=== PATIENT | female | born 1945 | race Caucasian/White ===

== ENCOUNTER 2023-11-07 15:36 | Inpatient (IN) | payer OTHER ==
[~2023-11-07] VITALS: Ht 157.5 cm; Wt 48.5 kg
[2023-11-07] MEDS ORDERED: PLAVIX75 MG (17:15)
[2023-11-07] MEDS ORDERED: VAZALORE81 MG PO (17:15)
[2023-11-07] MEDS ORDERED: CARDIZEM CD180 M1 PO (17:16)
[2023-11-07 23:03] LABS: HEMATOCRIT 28.5 % (36.0-45.00); HEMOGLOBIN 9.4 g/dL (12.0-15.00); MEAN CELL VOLUME 80.5 fL (80.00-100.00); MEAN CORPUSCULAR HEMOGLOBIN 26.7 pg (27.00-32.0); MEAN CORPUSCULAR HGB CONC 33.2 g/dl (32.0-36.0); PLATELET COUNT 292 K/uL (150-450); RED BLOOD COUNT 3.54 M/uL (4.00-6.00); RED CELL DISTRIBUTION WIDTH 18.6 % (11.5-14.5)
[2023-11-07 23:17] LABS: INR 1.1; PARTIAL THROMBOPLASTIN TIME 28.8 SECONDS (22.0-34.0); PROTHROMBIN TIME 11.5 SECONDS (9.0-11.5)
[2023-11-07 23:19] LABS: ALBUMIN 2.4 gm/dL (3.4-5.0); BILIRUBIN TOTAL 0.41 mg/dL (0.3-1.2); CREATININE SERUM 0.49 mg/dL (0.55-1.02); GFR 122.46; GLOBULINA 5.3 G/DL (2.4-3.5); POTASSIUM 3.19 mEq/L (3.5-5.1); TOTAL PROTEIN 7.7 gm/dL (6.4-8.2)
[2023-11-08] MEDS ORDERED: 0.9 % SODIUM CHLORIDE 1,000 ML IV SCH (00:45)
[2023-11-08] MEDS ORDERED: LEVALBUTEROL HCL 1.25 MG/3 ML SOLUTION IH SCH (00:45)
[2023-11-08] MEDS ORDERED: FAMOTIDINE/PF 20 MG in 0.9 % SODIUM CHLORIDE 8 ML IV PUSH SCH (00:48)
[2023-11-08] MEDS ORDERED: PIPERACILLIN/TAZOBACTAM SODIUM 3.375 GM in 0.9 % SODIUM CHLORIDE 100 ML IV SCH (00:51)
[2023-11-08] MEDS ORDERED: hydrALAZINE HCL 20 MG VIAL IV PRN (01:00)
[2023-11-08] MEDS ORDERED: ACETAMINOPHEN 500 MG GEL..CAP PO PRN (01:00)
[2023-11-08] MEDS ORDERED: ONDANSETRON HCL 4 MG in 0.9 % SODIUM CHLORIDE 50 ML IV PRN (01:00)
[2023-11-08] MEDS ORDERED: POTASSIUM BICARBONATE/CIT AC 25 MEQ TABLET.EFF PO ONE (01:00)
[2023-11-08] MEDS ORDERED: KETOROLAC TROMETHAMINE 30 MG VIAL IV PRN (01:00)
[2023-11-08] MEDS ORDERED: IPRATROPIUM BROMIDE 0.5 MG/2.5 ML AMPUL.NEB IH SCH (01:00)
[2023-11-08] MEDS ORDERED: LEVALBUTEROL HCL 0.63 MG/3 ML SOLUTION IH ONE (08:18)
[2023-11-08] MEDS ORDERED: IPRATROPIUM BROMIDE 0.5 MG/2.5 ML AMPUL.NEB IH ONE ×2 (08:18→16:44)
[2023-11-08] MEDS ORDERED: PATIENTS OWN MEDICATION (MEDICAMENTO EN PISO) PO SCH (09:00)
[2023-11-08] MEDS ORDERED: DILTIAZEM HCL 90 MG TABLET PO SCH (09:00)
[2023-11-08] MEDS ORDERED: ENOXAPARIN SODIUM 40 MG/0.4 ML SYRINGE SUBCUTANEO SCH (09:00)
[2023-11-08] MEDS ORDERED: LEVALBUTEROL HCL 1.25 MG/3 ML SOLUTION IH ONE (16:44)
[2023-11-08 18:03] LABS: ABG PH 7.418 (7.35-7.45); ABG PO2 79.3 mmHg (80-100); ABG pCO2 36.6 mmHg (35-45); BASE EXCESS -0.9 mmol/l; BICARBONATE 23.1 mmol/l (23-25); SaO2 95.8 %
[2023-11-08 18:04] LABS: Tco2 24.2 mmol/l; allen test SATISFACTORY; o2 21 %; puncture site RADIAL RIGHT
[2023-11-09] MEDS ORDERED: MEROPENEM 500 MG/VIAL VIAL IV SCH
[2023-11-09 07:43] LABS: HEMATOCRIT 29.8 % (36.0-45.00); HEMOGLOBIN 9.7 g/dL (12.0-15.00); MEAN CELL VOLUME 80.9 fL (80.00-100.00); MEAN CORPUSCULAR HEMOGLOBIN 26.2 pg (27.00-32.0); MEAN CORPUSCULAR HGB CONC 32.4 g/dl (32.0-36.0); PLATELET COUNT 293 K/uL (150-450); RED BLOOD COUNT 3.69 M/uL (4.00-6.00); RED CELL DISTRIBUTION WIDTH 18.6 % (11.5-14.5)
[2023-11-09 07:54] LABS: INR 1.09; PROTHROMBIN TIME 11.4 SECONDS (9.0-11.5)
[2023-11-09 08:05] LABS: ALBUMIN 2.4 gm/dL (3.4-5.0); BILIRUBIN TOTAL 0.48 mg/dL (0.3-1.2); BILIRUBIN,CONJUGATED 0.13 mg/dL (0.0-0.2); BILIRUBIN,UNCONJUGATED 0.35 mg/dL (0.0-0.6); CALCIUM 8.5 mg/dL (8.5-10.1); CREATININE SERUM 0.48 mg/dL (0.55-1.02); GFR 125.41; GLOBULINA 4.8 G/DL (2.4-3.5); POTASSIUM 3.57 mEq/L (3.5-5.1); TOTAL PROTEIN 7.2 gm/dL (6.4-8.2)
[2023-11-09 08:09] LABS: C-REACTIVE PROTEIN 9.11 MG/DL (0.00-0.29)
[2023-11-09 09:01] LABS: PH,URINE 5.5 (5.0-8.0); URINE APPEARANCE Cloudy; URINE BILIRRUBIN Negative (NEGATIVE); URINE BLOOD NHT; URINE COLOR Yellow; URINE GLUCOSE Negative (NEGATIVE); URINE LEUKOCYTE Moderate; URINE NITRATE Negative; URINE PROTEIN 30 (NEGATIVE)
[2023-11-09 09:05] LABS: URINE BACTERIA 539.2 uL (0.0-1933); URINE EPITHELIAL CELLS 19.3 uL (0.0-38.8); URINE WBC 2462.8 uL (0.0-23.2)
[2023-11-09 11:00] LABS: ERYTHROCYTE SEDIMENTATION RATE > 130 mm/hr
[2023-11-10] MEDS ORDERED: PANTOPRAZOLE SO40 MG (08:06)
[2023-11-10] MEDS ORDERED: FAMOtidine 20 MG TABLET PO SCH (21:00)
[2023-11-11] MEDS ORDERED: METOPROLOL SUCCINATE 25 MG TAB.SR.24H PO SCH (09:44)
[2023-11-11] MEDS ORDERED: CLONAZEPAM 0.5 MG TABLET PO SCH (09:44)
[2023-11-15] MEDS ORDERED: LEVALBUTEROL HCL 1.25 MG/3 ML SOLUTION IH SCH (13:00)
[2023-11-15] MEDS ORDERED: IPRATROPIUM BROMIDE 0.5 MG/2.5 ML AMPUL.NEB IH SCH (13:00)
[2023-11-16 11:16] LABS: HEMOGLOBIN 10.4 g/dL (12.0-15.00); MEAN CELL VOLUME 80.9 fL (80.00-100.00); MEAN CORPUSCULAR HEMOGLOBIN 26.2 pg (27.00-32.0); MEAN CORPUSCULAR HGB CONC 32.4 g/dl (32.0-36.0); PLATELET COUNT 266 K/uL (150-450); RED BLOOD COUNT 3.95 M/uL (4.00-6.00); RED CELL DISTRIBUTION WIDTH 18.4 % (11.5-14.5)
[2023-11-18 11:19] LABS: ALBUMIN 2.7 gm/dL (3.4-5.0); BILIRUBIN TOTAL 0.46 mg/dL (0.3-1.2); CALCIUM 8.7 mg/dL (8.5-10.1); CREATININE SERUM 0.51 mg/dL (0.55-1.02); GFR 116.93; TOTAL PROTEIN 7.7 gm/dL (6.4-8.2)
== END 2023-11-20 17:23 | disposition home or self-care (01) | DRG 580 ==
LOC: ER 15:37 → SEC-K 11-08 00:54 → SURH 11-12 03:07
PROVIDERS: Emergency Medicine; General Practice; Internal Medicine; ADMIT Internal Medicine; ATTEND Internal Medicine
PROC: B44HZZZ Ultrasonography of Bilateral Lower Extremity Arteries (ICD-10-PCS; 2023-11-08)
PROC: B54DZZZ Ultrasonography of Bilateral Lower Extremity Veins (ICD-10-PCS; 2023-11-08)
PROC: 0JDN0ZZ Extraction of Right Lower Leg Subcutaneous Tissue and Fascia, Open Approach (ICD-10-PCS; principal; 2023-11-12)
PROC: 0JDP0ZZ Extraction of Left Lower Leg Subcutaneous Tissue and Fascia, Open Approach (ICD-10-PCS; 2023-11-12)
DX: L97.919 Non-pressure chronic ulcer of unspecified part of right lower leg with unspecified severity (principal); L03.115 Cellulitis of right lower limb; L97.929 Non-pressure chronic ulcer of unspecified part of left lower leg with unspecified severity; L08.9 Local infection of the skin and subcutaneous tissue, unspecified; B95.61 Methicillin susceptible Staphylococcus aureus infection as the cause of diseases classified elsewhere; G47.33 Obstructive sleep apnea (adult) (pediatric); J44.9 Chronic obstructive pulmonary disease, unspecified